=== PATIENT | female | born 1980 | race Hispanic/Latino ===

== ENCOUNTER 2018-11-07 19:13 | Emergency (ER) | payer OTHER ==
[~2018-11-07] VITALS: Ht 157.5 cm; Wt 75.3 kg
--- OUTSIDE RECORDS SUMMARY | 2018-11-07 19:15 | XMS REPORT ---
Author Author Admin, Eastham Organization [facility] [place] [facility] Address [address] [place] [address] Phone Allergies, Adverse Reactions, Alerts Allergy Name Reaction Description Start Date Severity Status Provider No Known Allergies Ada Méndez CMA Conditions or Problems Problem Name Problem Code Onset Date Status Entry Date Provider Comment Standard Description Annotate Pelvic and perineal pain Active Izzy Sesay MD Groin pain 789.09 Active Jay Naranjo MD Abdominal pain, other specified site; multiple sites Abnormal uterine bleeding 626.9 Active Irasema Prado MD Unspecified disorders of menstruation and other abnormal bleeding from female genital tract Overweight Active Irasema Prado MD Overweight Pelvic pain, chronic 789.09 Active Oksana You MD Abdominal pain, other specified site; multiple sites Uterine fibroids 218.9 Active Oksana You MD Leiomyoma of uterus, unspecified ABDOMINAL PAIN, EPIGASTRIC ICD-789.06 Inactive Missy Lou MD Fibroids, uterus ICD-218.9 Inactive Mando Miller MD Followup examination ICD-V67.9 Inactive Mando Miller MD Pelvic pain ICD-625.9 Inactive Mando Miller MD Vaginal discharge ICD-623.5 Inactive Mando Miller MD Annual dehydrogenation operator exam ICD-V72.3 Inactive Mando Miller MD Screening for std ICD-V74.5 Inactive Manod Miller MD Vaginal discharge ICD-623.5 Inactive Mando Miller MD ABDOMINAL PAIN, EPIGASTRIC 789.06 Resolved Missy Lou MD Abdominal pain, epigastric Fibroids, uterus 218.9 Resolved Mando Miller MD Leiomyoma of uterus, unspecified Followup examination V67.9 Resolved Mando Miller MD Unspecified follow-up examination Pelvic pain 625.9 Resolved Mando Miller MD Unspecified symptom associated with female genital organs Vaginal discharge 623.5 Resolved Mando Miller MD Leukorrhea, not specified as infective Annual dehydrogenation operator exam V72.3 Resolved Mando Miller MD Special investigations and examinations - Gynecological examination Screening for std V74.5 Resolved Mando Miller MD Screening examination for venereal disease Vaginal discharge 623.5 Resolved Mando Miller MD Leukorrhea, not specified as infective Medication List Medication Instructions Start Date Stop Date Generic Name NDC Status Provider Patient Instruction IBU 600 MG ORAL TABLET Take 1 tablet by mouth every 8 hours as needed for pain IBUPROFEN 61184458466 Active Mando Miller MD Active SPRINTEC 28 0.25-35 MG-MCG ORAL TABLET Take 1 Tablet By Mouth Each Day NORGESTIMATE-ETH ESTRADIOL 96574219340 Active Mando Millre MD Active FLAGYL 500 MG ORAL TABLET 1 Tab PO BID x 7 Days METRONIDAZOLE 19825219685 Active Lavoris Sophy Sesay MD Active OMEPRAZOLE 40 MG ORAL CAPSULE DELAYED RELEASE 1 By Mouth Every Day OMEPRAZOLE 40 MG ORAL CAPSULE DELAYED RELEASE 087274 OMEPRAZOLE Inactive EC-NAPROSYN 500 MG ORAL TABLET DELAYED RELEASE 1 By Mouth Three Times a Day as needed EC-NAPROSYN 500 MG ORAL TABLET DELAYED RELEASE NAPROXEN Inactive LYSTEDA 650 MG ORAL TABLET 2tab By Mouth TID during periods for 5 days LYSTEDA 650 MG ORAL TABLET 636623 TRANEXAMIC ACID Inactive FLAGYL 500 MG ORAL TABLET 1 Tab PO BID x 7 Days FLAGYL 500 MG ORAL TABLET 588784 METRONIDAZOLE Inactive IBUPROFEN 800 MG ORAL TABLET 1 By Mouth Three Times a Day as needed IBUPROFEN 800 MG ORAL TABLET 997204 IBUPROFEN Inactive METRONIDAZOLE 500 MG ORAL TABLET 1 tab by mouth twice a day METRONIDAZOLE 500 MG ORAL TABLET 218460 METRONIDAZOLE Inactive OMEPRAZOLE 40 MG ORAL CAPSULE DELAYED RELEASE 1 By Mouth Every Day OMEPRAZOLE 12981375408 No Longer Active Missy Lou MD Active EC-NAPROSYN 500 MG ORAL TABLET DELAYED RELEASE 1 By Mouth Three Times a Day as needed NAPROXEN 89601634336 No Longer Active Izzy Sesay MD Active LYSTEDA 650 MG ORAL TABLET 2tab By Mouth TID during periods for 5 days TRANEXAMIC ACID 30048715739 No Longer Active Izzy Sesay MD Active FLAGYL 500 MG ORAL TABLET 1 Tab PO BID x 7 Days METRONIDAZOLE 28685081856 No Longer Active Missy Lou MD Active IBUPROFEN 800 MG ORAL TABLET 1 By Mouth Three Times a Day as needed IBUPROFEN 43285229843 No Longer Active Missy Lou MD Active METRONIDAZOLE 500 MG ORAL TABLET 1 tab by mouth twice a day METRONIDAZOLE 80231964155 No Longer Active Oksana You MD Active Vital Signs Date Name Value Unit Range Description blood pressure, diastolic 78 mm[Hg] BP beck blood pressure, systolic 115 mm[Hg] BP sys height E&M 63 [in_us] Bdy height pulse rate E&M 70 /min Heart rate temperature E&M 98.7 [degF] Body temperature weight E&M 166 [lb_av] Weight Measured blood pressure, diastolic 77 mm[Hg] BP beck blood pressure, systolic 126 mm[Hg] BP sys height E&M 63 [in_us] Bdy height pulse rate E&M 80 /min Heart rate respiratory rate E&M 18 /min Resp rate temperature E&M 98.4 [degF] Body temperature weight E&M 167 [lb_av] Weight Measured blood pressure, diastolic 82 mm[Hg] BP beck blood pressure, systolic 122 mm[Hg] BP sys height E&M 63 [in_us] Bdy height pulse rate E&M 71 /min Heart rate respiratory rate E&M 14 /min Resp rate temperature E&M 98.5 [degF] Body temperature weight E&M 162.40 [lb_av] Weight Measured blood pressure, diastolic 79 mm[Hg] BP beck blood pressure, systolic 121 mm[Hg] BP sys height E&M 63 [in_us] Bdy height pulse rate E&M 84 /min Heart rate respiratory rate E&M 14 /min Resp rate temperature E&M 98.3 [degF] Body temperature weight E&M 160.60 [lb_av] Weight Measured blood pressure, diastolic 81 mm[Hg] BP beck blood pressure, systolic 125 mm[Hg] BP sys height E&M 63 [in_us] Bdy height pulse rate E&M 60 /min Heart rate respiratory rate E&M 13 /min Resp rate temperature E&M 98.7 [degF] Body temperature weight E&M 158.60 [lb_av] Weight Measured Diagnostic Results Date Name Value Unit Range Description Lab Report: LIPID PANEL, HDL CHOLESTEROL, TRIGLYCERIDES, LDL-CHOLESTEROL ... - Chemistry cholesterol, non-HDL, total 76 MG/DL (CALC) mg/dL <130 hepatitis B surface antigen NON-REACTIVE NON-REACTIVE Lab Report: Comp. Metabolic Panel (14), H pylori Breath Test, H. pylori ... - Chemistry chloride, serum 105 mmol/L 96-106 urea nitrogen, blood 9 mg/dL 6-20 Lab Report: LIPID PANEL, HDL CHOLESTEROL, TRIGLYCERIDES, LDL-CHOLESTEROL ... - Hematology Absolute Eosinophil count 92 {Cells}/uL 15-500 Lab Report: CBC With Differential/Platelet - Hematology mean corpuscular hemoglobin concentration, RBC 32.4 G/DL % 31.5-35.7 erythrocyte (RBC) count 3.90 X10E6/UL 10*6/mm3 3.77-5.28 Lab Report: LIPID PANEL, HDL CHOLESTEROL, TRIGLYCERIDES, LDL-CHOLESTEROL ... - Chemistry cholesterol/HDL ratio, serum, percent 2.0 (calc) <5.0 Lab Report: LIPID PANEL, HDL CHOLESTEROL, TRIGLYCERIDES, LDL-CHOLESTEROL ... - Serology hepatitis C antibody, serum NON-REACTIVE NON-REACTIVE Lab Report: CBC With Differential/Platelet - Chemistry Absolute Neutrophils 3.0 X10E3/UL 10*3/uL 1.4-7.0 Lab Report: LIPID PANEL, HDL CHOLESTEROL, TRIGLYCERIDES, LDL-CHOLESTEROL ... - Hematology mean platelet volume 11.5 fL 7.5-12.5 Lab Report: LIPID PANEL, HDL CHOLESTEROL, TRIGLYCERIDES, LDL-CHOLESTEROL ... - Chemistry LDL cholesterol, serum 62 MG/DL (CALC) mg/dL Lab Report: Comp. Metabolic Panel (14), H pylori Breath Test, H. pylori ... - Chemistry urea nitrogen/creatinine ratio, serum 13 9-23 Lab Report: CBC With Differential/Platelet - Hematology mean corpuscular volume, RBC 88 fL 79-97 Lab Report: LIPID PANEL, HDL CHOLESTEROL, TRIGLYCERIDES, LDL-CHOLESTEROL ... - Chemistry HDL cholesterol, serum 76 mg/dL >50 Lab Report: CBC With Differential/Platelet - Hematology monocytes as percent of blood leukocytes 7 % Not Estab. Lab Report: Creatinine - Chemistry creatinine, serum 0.78 mg/dL 0.57-1.00 Lab Report: Comp. Metabolic Panel (14), H pylori Breath Test, H. pylori ... - Chemistry albumin/globulin ratio, serum 1.6 1.2-2.2 Lab Report: Vaginitis/Vaginosis, DNA Probe, Ct, Ng, Trich vag by QUIQUE - Urinalysis trichomonas vaginalis, urine Negative Negative Lab Report: LIPID PANEL, HDL CHOLESTEROL, TRIGLYCERIDES, LDL-CHOLESTEROL ... - Hematology Absolute Monocyte count 388 {Cells}/uL 200-950 Lab Report: LIPID PANEL, HDL CHOLESTEROL, TRIGLYCERIDES, LDL-CHOLESTEROL ... - Chemistry cholesterol, serum 152 mg/dL <200 Lab Report: Comp. Metabolic Panel (14), H pylori Breath Test, H. pylori ... - Chemistry bilirubin, serum, total 0.3 mg/dL 0.0-1.2 Lab Report: CBC With Differential/Platelet - Hematology Eosinophil Absolute Count 0.1 X10E3/UL 10*3/uL 0.0-0.4 Lab Report: Vaginitis/Vaginosis, DNA Probe, Ct, Ng, Trich vag by QUIQUE - Lab chlamydia DNA probe Negative Negative Lab Report: Comp. Metabolic Panel (14), H pylori Breath Test, H. pylori ... - Chemistry aspartate aminotransferase (SGOT), serum 18 U/L 0-40 Lab Report: CBC With Differential/Platelet - Hematology red blood cell distribution width 16.0 % 12.3-15.4 Lab Report: LIPID PANEL, HDL CHOLESTEROL, TRIGLYCERIDES, LDL-CHOLESTEROL ... - Chemistry globulins, serum, total 3.2 G/DL (CALC) g/dL 1.9-3.7 Lab Report: CBC With Differential/Platelet - Hematology leukocyte count, blood 5.0 X10E3/UL 10*3/mm3 3.4-10.8 Lab Report: Comp. Metabolic Panel (14), H pylori Breath Test, H. pylori ... - Chemistry potassium, serum 3.9 mmol/L 3.5-5.2 Lab Report: CBC With Differential/Platelet - Chemistry immature granulocytes, percentage of total cells, blood 0 % Not Estab. Lab Report: Comp. Metabolic Panel (14), H pylori Breath Test, H. pylori ... - Chemistry albumin, serum 4.2 g/dL 3.5-5.5 Lab Report: CBC With Differential/Platelet - Hematology lymphocyte count, blood, automated 1.6 X10E3/UL 10*3/mm3 0.7-3.1 hematocrit, blood 34.3 % 34.0-46.6 Lab Report: Vaginitis/Vaginosis, DNA Probe, Ct, Ng, Trich vag by QUIQUE - Microbiology Neisseria gonorrhoeae DNA probe Negative Negative Lab Report: Comp. Metabolic Panel (14), H pylori Breath Test, H. pylori ... - Chemistry sodium, serum 138 mmol/L 134-144 Lab Report: LIPID PANEL, HDL CHOLESTEROL, TRIGLYCERIDES, LDL-CHOLESTEROL ... - Chemistry TSH (thyroid stimulating hormone) with reflex FT4 3.43 m[iU]/L Lab Report: CBC With Differential/Platelet - Hematology neutrophils as percent of blood leukocytes 59 % Not Estab. basophils as percent of blood leukocytes 1 % Not Estab. Lab Report: LIPID PANEL, HDL CHOLESTEROL, TRIGLYCERIDES, LDL-CHOLESTEROL ... - Serology rapid plasma reagin antibody, serum NON-REACTIVE NON-REACTIVE Lab Report: Comp. Metabolic Panel (14), H pylori Breath Test, H. pylori ... - Chemistry carbon dioxide, venous blood 20 mmol/L 20-29 Lab Report: LIPID PANEL, HDL CHOLESTEROL, TRIGLYCERIDES, LDL-CHOLESTEROL ... - Chemistry Absolute Neutrophil count 3075 {Cells}/uL 1646-8716 triglyceride, serum, fasting 49 mg/dL <150 Lab Report: Comp. Metabolic Panel (14), H pylori Breath Test, H. pylori ... - Chemistry calcium, serum 8.9 mg/dL 8.7-10.2 alanine aminotransferase (SGPT), serum 14 U/L 0-32 Lab Report: CBC With Differential/Platelet - Hematology mean corpuscular hemoglobin, RBC 28.5 pg 26.6-33.0 Lab Report: Comp. Metabolic Panel (14), H pylori Breath Test, H. pylori ... - Chemistry protein, total, serum 6.9 g/dL 6.0-8.5 alkaline phosphatase, serum 79 U/L 39-117 Lab Report: CBC With Differential/Platelet - Hematology hemoglobin, blood 11.1 g/dL 11.1-15.9 lymphocytes as percent of blood leukocytes 32 % Not Estab. Lab Report: SURESWAB(R), CT/NG, T VAGINALIS, SURESWAB(R) TRICHOMONAS VAG ... - Chemistry TRICHOMONAS VAGINALIS DNA PROBE NOT DETECTED NOT DETECTED Lab Report: LIPID PANEL, HDL CHOLESTEROL, TRIGLYCERIDES, LDL-CHOLESTEROL ... - Chemistry hemoglobin A1C, blood, as % of total hemoglobin 5.5 % OF TOTAL HGB % <5.7 Lab Report: LIPID PANEL, HDL CHOLESTEROL, TRIGLYCERIDES, LDL-CHOLESTEROL ... - Hematology eosinophils as percent of blood leukocytes 1.8 % Lab Report: Creatinine - Genetics/fertility eGFR if 112 mL/min/1.73m2 >59 Lab Report: CBC With Differential/Platelet - Hematology basophil count, absolute 0.0 x10E3/uL 0.0-0.2 Lab Report: SURESWAB(R), CT/NG, T VAGINALIS, SURESWAB(R) TRICHOMONAS VAG ... - Lab Gardnerella vaginalis by Real-Time PCR DETECTED NOT DETECTED Lab Report: LIPID PANEL, HDL CHOLESTEROL, TRIGLYCERIDES, LDL-CHOLESTEROL ... - Lab Hepatitis C Antibody, Signal to Cut-Off 0.10 <1.00 Lab Report: Comp. Metabolic Panel (14), H pylori Breath Test, H. pylori ... - Chemistry globulin, serum 2.7 1.5-4.5 Lab Report: SURESWAB(R), CT/NG, T VAGINALIS, SURESWAB(R) TRICHOMONAS VAG ... - Lab [place] Vaginitis Panel by Real-Time PCR (albicans,glabrata,tropicalis,parapsilosis) NOT DETECTED NOT DETECTED Lab Report: Creatinine - Chemistry Estimated Glomerular Filtration Rate (calc) 97 mL/min/1.73m2 >59 Lab Report: LIPID PANEL, HDL CHOLESTEROL, TRIGLYCERIDES, LDL-CHOLESTEROL ... - Chemistry lymphocytes, absolute 1515 CELLS/UL 10*3/uL 850-3900 Lab Report: CBC With Differential/Platelet - Hematology eosinophils as percent of blood leukocytes 1 % Not Estab. Lab Report: Comp. Metabolic Panel (14), H pylori Breath Test, H. pylori ... - Chemistry blood glucose, random 120 mg/dL 65-99 Lab Report: CBC With Differential/Platelet - Hematology monocyte count, blood, automated 0.3 X10E3/UL 10*3/uL 0.1-0.9 platelet count 344 X10E3/UL 10*3/mm3 150-450 Encounters Date Encounter Provider Code Facility 11:11:10 CDT Est Patient Exp Problem - 21974 Mando Miller MD CPT-79437 [facility] 11:10:43 CDT Est Patient Exp Problem - 55733 Izzy Sesay MD CPT-71117 [facility] 15:31:58 CDT Ofc Vst, Est Level III Missy Lou MD CPT-29715 [facility] 16:57:40 CDT Est Patient Exp Problem - 59726 Jay Naranjo MD CPT-68870 [facility] 17:02:08 [employer]CTION[employer] 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
[2018-11-07] MEDS ORDERED: SODIUM CHLORIDE 0.9% 1000ML 1,000 ML IV ONE (20:15)
[2018-11-07] MEDS ORDERED: ONDANSETRON HCL INJ 2MG/ML 2ML 2 MG/ML VIAL IV NR (20:15)
--- NOTE | 2018-11-07 21:16 | NUR ---
PT PROVIDED WITH BEDSIDE COMMODE.
[2018-11-07 21:21] LABS: BASOPHILS % 0.1 % (0.0-1.0); EOSINOPHILS % 0.4 % (0.0-6.0); HEMATOCRIT 34.1 % (34.2-44.1); LYMPHOCYTES # (AUTO) 1.2 (1.0-3.2); LYMPHOCYTES % 17.8 % (18.0-39.1); MEAN CORPUSCULAR HEMOGLOBIN 28.3 pg (28-32); MEAN CORPUSCULAR HGB CONC 32.3 g/dL (31-35); MEAN CORPUSCULAR VOLUME 87.7 fL (81-99); MONOCYTES # (AUTO) 0.7 (0.2-0.8); MONOCYTES % 9.8 % (4.4-11.3); NEUTROPHILS % 71.8 % (38.7-80.0); PLATELET COUNT 301 x10e3/uL (140-360); RED BLOOD COUNT 3.89 x10e6/uL (3.6-5.1); RED CELL DISTRIBUTION WIDTH 15.5 % (11.7-14.4)
[2018-11-07 21:21] LABS: BILIRUBIN,URINE NEGATIVE (NEGATIVE); CLARITY,URINE SL CLOUDY (CLEAR); COLOR,URINE YELLOW (YELLOW); KETONES,URINE NEGATIVE (NEGATIVE); LEUKOCYTE ESTERASE ,URINE NEGATIVE (NEGATIVE); NITRITE,URINE NEGATIVE (NEGATIVE); PROTEIN,URINE DIPSTICK NEGATIVE (NEGATIVE); URINE UROBILINOGEN 0.2 mg/dL (0.2 - 1)
[2018-11-07 21:26] LABS: PREGNANCY TEST, URINE NEGATIVE (NEGATIVE)
[2018-11-07 21:34] LABS: EPITHELIAL CELLS,URINE RARE /LPF
[2018-11-07 21:41] LABS: ALANINE AMINOTRANSFERASE 26 IU/L (0-55); ALBUMIN 3.9 g/dL (3.5-5.0); ALKALINE PHOSPHATASE 86 IU/L (40-150); ANION GAP 13.3 mmol/L (8-16); BLOOD UREA NITROGEN 6 mg/dL (7-26); BUN/CREATININE RATIO 8 (6-25); CALCIUM 9.4 mg/dL (8.4-10.2); CARBON DIOXIDE 23 mmol/L (22-29); CHLORIDE 102 mmol/L (98-107); CREATININE, SERUM 0.79 mg/dL (0.57-1.11); EST GLOMERULAR FILTRATION RATE > 60 ML/MIN (60-); GLUCOSE 90 mg/dL (74-118); POTASSIUM 3.3 mmol/L (3.5-5.1); SODIUM 135 mmol/L (136-145)
[2018-11-07 21:54] LABS: AMYLASE 40 U/L (25-125); LIPASE 43 U/L (8-78)
--- NOTE | 2018-11-07 22:50 | Diagnostic Imaging Report ---
EXAM: CT Abdomen and Pelvis WITH contrast INDICATION: Abdominal pain COMPARISON: None. TECHNIQUE: Abdomen and pelvis were scanned utilizing a multidetector helical scanner from the lung base to the pubic symphysis after administration of IV contrast. Coronal and sagittal reformations were obtained. Routine protocol was performed. Scan was performed when during portal venous phase. IV CONTRAST: 100 mL of Isovue 370 ORAL CONTRAST: None COMPLICATIONS: None RADIATION DOSE: Total DLP: 598 mGy*cm Estimated effective dose: (DLP x 0.015 x size factor) mSv CTDIvol has been reviewed. It is below the limits set by the Radiation Protocol Committee (RPC). Dose modulation, iterative reconstruction, and/or weight based adjustment of the mA/kV was utilized to reduce the radiation dose to as low as reasonably achievable. FINDINGS: LINES and TUBES: None. LOWER THORAX: Unremarkable HEPATOBILIARY: No focal hepatic lesions. No biliary ductal dilation. GALLBLADDER: No radio-opaque stones or sludge. No wall thickening. SPLEEN: No splenomegaly. PANCREAS: No focal masses or ductal dilatation. ADRENALS: No adrenal nodules KIDNEYS/URETERS: Kidneys enhance symmetrically. No hydronephrosis. No cystic or solid mass lesions. No stones. GI TRACT: Mild wall thickening and mucosal enhancement of the colon and rectum. Focal wall thickening and pericolonic fat stranding in the distal descending colon near the sigmoid flexure with mild adjacent peritoneal membrane thickening. No obvious diverticuli except for possibly one at the site of the distal descending inflammatory changes. Appendix is normal. PELVIC ORGANS/BLADDER: Mildly enlarged uterus with enhancing uterine fibroids. Corpus luteum in right ovary.. LYMPH NODES: No lymphadenopathy. VESSELS: Unremarkable. PERITONEUM / RETROPERITONEUM: Trace fluid in the right lower abdomen/pelvis.. BONES: Unremarkable. SOFT TISSUES: Thickening in the lower abdominal rectus musculature extending towards the Pfannenstiel incision scar consistent remote postsurgical changes.. IMPRESSION: 1. Uncomplicated diverticulitis at the distal descending colon. There also appears to be nonspecific mild pancolitis. 2. Multi fibroid uterus. Signed by: Dillon Aguayo DO on 11/07/2018 10:46 PM
[2018-11-07 23:23] VITALS: BP 100/69
[2018-11-08] MEDS ORDERED: IOPAMIDOL 370 MG/ML 200 ML INFUS..BTL INJ ONE (03:00)
[2018-11-08] MEDS ORDERED: SODIUM CHLORIDE 0.9% 50ML 50 ML ONE (03:00)
== END 2018-11-07 23:26 | disposition home or self-care (01) ==
LOC: ER 19:13
DX: R10.12 Left upper quadrant pain (principal); R19.7 Diarrhea, unspecified; K57.32 Diverticulitis of large intestine without perforation or abscess without bleeding
CPT/HCPCS: 36415; 74177; 80053; 81001; 81025; 82150; 83690; 85025; 99284; J2405; J7030